=== PATIENT | male | born 1990 | race Caucasian/White ===

== ENCOUNTER 2016-03-12 15:03 | Emergency (ER) | payer BC ==
--- NOTE | 2016-03-12 15:09 | ER Document Report ---
ED Medical Screen (RME) - General Stated Complaint: DIZZY/WEAKNESS Notes: 25-year-old male presents to ED for dizziness, nausea, weakness, bodyaches, and fever since last night. Temp in ED 102.0 I have greeted and performed a rapid initial assessment of this patient. A comprehensive ED assessment and evaluation of the patient, analysis of test results and completion of medical decision making process will be conducted by an additional ED providers. TRAVEL OUTSIDE OF THE [place] IN LAST 30 DAYS: No - Related Data Allergies/Adverse Reactions: No Known Allergies Allergy (Verified 09/14/12 15:51) Past Medical History Pulmonary Medical History: Reports: Hx Asthma - as child, Hx Bronchitis - as child, Hx COPD Denies: Hx Tuberculosis Musculoskeltal Medical History: Denies Hx Arthritis, Denies Hx Fibromyalgia, Denies Hx Muscular Dystrophy Psychiatric Medical History: Denies: Hx Bipolar Disorder, Hx Depression, Hx Post Traumatic Stress Disorder , Hx Schizophrenia Traumatic Medical History: Reports: Hx Fractures - left wrist fracture Past Surgical History: Reports: Hx Orthopedic Surgery - right knee, Hx Tonsillectomy. Denies: Hx Appendectomy, Hx Bowel Surgery, Hx Cholecystectomy, Hx Coronary Artery Bypass Graft, Hx Gastric Bypass Surgery, Hx Herniorrhaphy, Hx Pacemaker - Immunizations Hx Diphtheria, Pertussis, Tetanus Vaccination: Yes
[2016-03-12] MEDS ORDERED: IBUPROFEN 800 MG TABLET PO ONE (15:10)
[2016-03-12] MEDS ORDERED: NORMAL SALINE 1000 ML 3,000 ML IV ONE (15:12)
[2016-03-12 16:01] LABS: ABSOLUTE LYMPHOCYTES (AUTO) 0.9 10^3/uL (0.5-4.7); ABSOLUTE MONOCYTES (AUTO) 0.7 10^3/uL (0.1-1.4); ABSOLUTE NEUT (AUTO) 11.1 10^3/uL (1.7-8.2); BASOPHILS % (AUTO) 0.2 % (0-2); HEMATOCRIT 45.5 % (37.9-51.0); HEMOGLOBIN 15.3 g/dL (13.5-17.0); HGB HCT DIFFERENCE 0.4; LYMPHOCYTES % (AUTO) 6.8 % (13-45); MEAN CORPUSCULAR HGB CONC 33.7 g/dL (32.0-36.0); MEAN CORPUSCULAR VOLUME 89 fl (80-97); MONOCYTES % (AUTO) 5.8 % (3-13); RED CELL DISTRIBUTION WIDTH 12.9 % (11.5-14.0); SEGMENTED NEUTROPHILS % (AUTO) 87.2 % (42-78); WHITE BLOOD COUNT 12.8 10^3/uL (4.0-10.5)
[2016-03-12 16:03] LABS: APPEARANCE,URINE SLIGHTLY-CLOUDY; BILIRUBIN,URINE NEGATIVE (NEGATIVE); GLUCOSE, URINE NEGATIVE (NEGATIVE); KETONES,URINE NEGATIVE (NEGATIVE); LEUKOCYTE ESTERASE,URINE NEGATIVE (NEGATIVE); NITRITE,URINE NEGATIVE (NEGATIVE); PROTEIN,URINE NEGATIVE (NEGATIVE); URINE SPECIFIC GRAVITY 1.018; UROBILINOGEN,URINE NEGATIVE mg/dL (<2.0)
[2016-03-12 16:21] LABS: ALANINE AMINOTRANSFERASE 48 U/L (21-72); ALBUMIN 4.6 g/dL (3.5-5.0); ALKALINE PHOSPHATASE 87 U/L (38-126); ANION GAP 15 (5-19); ASPARTATE AMINO TRANSFERASE 27 U/L (17-59); BILIRUBIN,TOTAL 0.8 mg/dL (0.2-1.3); BLOOD UREA NITROGEN 12 mg/dL (7-20); CALCIUM 9.9 mg/dL (8.4-10.2); CARBON DIOXIDE 27 mmol/L (22-30); CHLORIDE 100 mmol/L (98-107); CREATININE RESULT 0.96 mg/dL (0.52-1.25); GLUCOSE 104 mg/dL (75-110); POTASSIUM 3.9 mmol/L (3.6-5.0); SODIUM 141.7 mmol/L (137-145); TOTAL PROTEIN 7.8 g/dL (6.3-8.2)
[2016-03-12] MEDS ORDERED: ONDANSETRON HCL INJ/PF 4 MG/2 ML SDV IV ONE (16:29)
[2016-03-12] MEDS ORDERED: DEXAMETHASONE SOD PHOS INJ 10 MG/1 ML VIAL IV ONE (16:29)
[2016-03-12] MEDS ORDERED: PENICILLIN V POTASSIUM 500 MG TABLET PO ONE (16:30)
[2016-03-12] MEDS ORDERED: ACETAMINOPHEN 325 MG TABLET PO ONE (16:33)
--- NOTE | 2016-03-12 16:53 | ER Document Report ---
ED General - General Chief Complaint: Dizziness Stated Complaint: DIZZY/WEAKNESS Time seen by provider: 16:00 Mode of Arrival: Ambulatory Information source: Patient Notes: 25-year-old male presented 2 day history of subjective fever chills nonproductive cough sore throat diffuse body aches. Patient reports she's felt so weak he thinks he might have passed out once or twice over the past day. He denies vomiting, diarrhea, hematemesis, melena, dysuria, or specific chest dollar back pain. He reports chronic back pain which she says is about typical for him. Physical Exam: General: Alert, appears uncomfortable HEENT: Normocephalic. Atraumatic. PERRLA. Extraocular movements intact. Oropharynx with erythema and swelling to the tonsillar area bilaterally with white exudate bilaterally. No stridor or hoarseness or drooling Neck: Supple. Tender adenopathy bilaterally no JVD Respiratory: No respiratory distress. Clear and equal breath sounds bilaterally. Cardiovascular: Regular rate and rhythm. Abdominal: Normal Inspection. Soft, non-tender. No distension. Normal Bowel Sounds. Back: Non-tender. No deformity or step off. Extremities: Moves all four extremities. Upper extremities: Normal inspection. Non-tender. Normal color. Normal ROM. Normal temperature. Lower extremities: Normal inspection. Non-tender. No edema. Normal color. Normal ROM. Normal temperature. Neurological: Speech clear mentation normal director of social work strength 5 out of 5 equal both upper tremors motor function 5 out of 5 equal both lower extremities Psychological: Normal affect. Normal Mood. Skin: Warm. Dry. Normal color. TRAVEL OUTSIDE OF THE [place] IN LAST 30 DAYS: No - Related Data Allergies/Adverse Reactions: No Known Allergies Allergy (Verified 09/14/12 15:51) Past Medical History - Social History Smoking Status: Current Every Day Smoker Family History: Reviewed & Not Pertinent Patient has suicidal ideation: No Patient has homicidal ideation: No Pulmonary Medical History: Reports: Hx Asthma - as child, Hx Bronchitis - as child, Hx COPD Denies: Hx Tuberculosis Renal/ Medical History: Denies: Hx Peritoneal Dialysis Musculoskeltal Medical History: Denies Hx Arthritis, Denies Hx Fibromyalgia, Denies Hx Muscular Dystrophy Psychiatric Medical History: Denies: Hx Bipolar Disorder, Hx Depression, Hx Post Traumatic Stress Disorder , Hx Schizophrenia Traumatic Medical History: Reports: Hx Fractures - left wrist fracture Past Surgical History: Reports: Hx Orthopedic Surgery - right knee, Hx Tonsillectomy. Denies: Hx Appendectomy, Hx Bowel Surgery, Hx Cholecystectomy, Hx Coronary Artery Bypass Graft, Hx Gastric Bypass Surgery, Hx Herniorrhaphy, Hx Pacemaker - Immunizations Hx Diphtheria, Pertussis, Tetanus Vaccination: Yes Review of Systems - Review of Systems Constitutional: See HPI EENT: See HPI Cardiovascular: See HPI Respiratory: See HPI Genitourinary: denies: Burning, Dysuria Musculoskeletal: See HPI Skin: denies: Rash Hematologic/Lymphatic: Swollen glands Neurological/Psychological: Weakness. denies: Numbness Physical Exam - Vital signs Vitals: Temp Pulse Resp BP Pulse Ox 102 F H 125 H 18 138/73 H 98 03/12/16 15:07 03/12/16 15:07 03/12/16 15:07 03/12/16 15:07 03/12/16 15:07 Course - Re-evaluation Re-evalutation: 03/12/16 17:09 Patient predominantly has acute pharyngitis group A strep. I believe he also has a component of on depletion accounting for his tachycardia and would generalized weakness. Been treated with Motrin in triage and also received Tylenol and Zofran here as well as dexamethasone given the degree of his throat discomfort. I do not palpate anything to suggest peritonsillar or retropharyngeal abscess. He has no airway compromise believe is safe for discharge with outpatient medications for nausea as well as Pen-Vee K and steroid Dosepak. We will follow with his physician or return to emergency department for further problems - Vital Signs Vital signs: Temp Pulse Resp BP Pulse Ox 102 F H 125 H 18 138/73 H 98 03/12/16 15:07 03/12/16 15:07 03/12/16 15:07 03/12/16 15:07 03/12/16 15:07 - Laboratory Result Diagrams: 03/12/16 15:35 03/12/16 15:35 Laboratory results interpreted by me: 03/12/16 15:35 WBC 12.8 H Seg Neutrophils % 87.2 H Lymphocytes % 6.8 L Absolute Neutrophils 11.1 H - Diagnostic Test Radiology reviewed: Reports reviewed - EKG Interpretation by Me Additional EKG results interpreted by me: 03/12/16 17:13 EKG reviewed by myself shows sinus tachycardia at 102 no acute changes Discharge - Discharge Clinical Impression: Dehydration Acute pharyngitis Qualifiers: Pharyngitis/tonsillitis etiology: streptococcus Qualified Code(s): J02.0 - Streptococcal pharyngitis Condition: Stable Disposition: HOME, SELF-CARE Additional Instructions: Sore Throat Sore throats may be caused by viruses, bacteria, or fungi. Most are due to a virus, and must get better on their own. Bacterial sore throats, particularly those due to "strep," need treatment with antibiotics. If an antibiotic is prescribed, be sure to take the medication for a full 10 days. Failure to take the antibiotic can result in complications such as rheumatic fever. Sometimes, an injection of antibiotics is given instead of pills or liquid. This single "shot" is equal in effectiveness to the oral medication. To relieve symptoms, take acetaminophen for pain. Sip clear liquids frequently, or eat popsicles or ice chips. Anesthetic sprays or lozenges may help. Make sure the air in the room is not too dry. Avoid using decongestants or antihistamines. Call the doctor if there is no improvement in two days, or if you have difficulty breathing, increasing throat pain, high fever, rash, or frequent vomiting. Prescriptions: Methylprednisolone [Medrol Dosepack (4 mg/Tab) 21 Tab/Dosepak] 4 mg PO ASDIR PRN #21 tab.ds.pk PRN Reason: Ondansetron [Zofran Odt 4 mg Tablet] 1 - 2 tab PO Q4H PRN #15 tab.rapdis PRN Reason: For Nausea/Vomiting Penicillin V Potassium [Penicillin Vk 500 mg Tablet] 500 mg PO QID #40 tablet Referrals: FIDE MAGAÑA MD [Primary Care Provider] - Follow up as needed
[2016-03-12] MEDS: NORMAL SALINE 1000 ML 1,000 ML IV PRN ×2 (17:11→17:45)
--- NOTE | 2016-03-12 19:04 | EKG REPORT ---
SEVERITY:- ABNORMAL ECG - SINUS TACHYCARDIA NONSPECIFIC INTRAVENTRICULAR CONDUCTION DELAY INFERIOR Q WAVES, PROBABLY NORMAL VARIATION : Confirmed by: Mikey Álvarez 12-Mar-2016 19:03:24
[2016-03-12 19:12] VITALS: BP 100/44
== END 2016-03-12 18:30 | disposition home or self-care (01) ==
LOC: ER 15:03
DX: J02.0 Streptococcal pharyngitis (principal); E86.0 Dehydration; R42 Dizziness and giddiness; R50.9 Fever, unspecified; R05 Cough; F17.200 Nicotine dependence, unspecified, uncomplicated
CPT/HCPCS: 93005; 99284; 36415; 87040; 87880; 85025; 80053; 81001; 83605; 87804; 71020; 93010; J2405; J7030; J1100

== ENCOUNTER 2017-04-08 20:18 | Emergency (ER) | payer BC ==
[2017-04-08] MEDS ORDERED: BENZONATATE 100 MG CAPSULE PO ONE (22:43)
--- NOTE | 2017-04-08 22:43 | ER Document Report ---
ED Flu Like - General Mode of Arrival: Ambulatory Information source: Patient TRAVEL OUTSIDE OF THE [place] IN LAST 30 DAYS: No - General Chief Complaint: Flu Symptoms Stated Complaint: FLU SYMPTOMS Time Seen by Provider: 04/08/17 22:10 Notes: Patient is a 26-year-old male who presents to the emergency department today with complaints of flu-like symptoms including a sore throat, body aches, sweats , chills, fevers, cough, and pain with breathing. Patient states he has coughed until he vomited twice since this has began. Patient states he has a history of asthma but he has not had to use an inhaler in over 5 years, stating he does not even have one anymore. Patient denies any nasal congestion. (LAYNE ESTRADA) - Related Data Allergies/Adverse Reactions: No Known Allergies Allergy (Verified 04/08/17 21:58) Past Medical History - General Information source: Patient - Social History Smoking Status: Current Every Day Smoker Cigarette use (# per day): Yes Frequency of alcohol use: None Drug Abuse: None Lives with: Family Family History: Reviewed & Not Pertinent Patient has suicidal ideation: No Patient has homicidal ideation: No Pulmonary Medical History: Reports: Hx Asthma - as child, Hx Bronchitis - as child, Hx COPD Traumatic Medical History: Reports: Hx Fractures - left wrist fracture Past Surgical History: Reports: Hx Orthopedic Surgery - right knee, Hx Tonsillectomy - Immunizations Hx Diphtheria, Pertussis, Tetanus Vaccination: Yes Review of Systems - Review of Systems Constitutional: See HPI, Chills, Diaphoresis, Fever EENT: See HPI, Throat pain. denies: Nose congestion Cardiovascular: See HPI, Chest pain Respiratory: See HPI, Cough - until vomit x2, Hurts to breathe Gastrointestinal: No symptoms reported Genitourinary: No symptoms reported Male Genitourinary: No symptoms reported Musculoskeletal: See HPI, Other - generalized body aches Skin: No symptoms reported Hematologic/Lymphatic: No symptoms reported Neurological/Psychological: No symptoms reported -: Yes All other systems reviewed and negative Physical Exam - Vital signs Vitals: Temp Pulse Resp BP Pulse Ox 99.2 F 108 H 21 H 146/63 H 98 04/08/17 20:34 04/08/17 20:34 04/08/17 20:34 04/08/17 20:34 04/08/17 20:34 - Notes Notes: PHYSICAL EXAM GENERAL: Alert, interacts well. No acute distress. HEAD: Normocephalic, atraumatic. EYES: Pupils equal, round, and reactive to light. Extraocular movements intact. ENT: Oral mucosa moist, tongue midline. No posterior oropharynx erythema, exudate, or postnasal drainage. NECK: Full range of motion. Supple. Trachea midline. LUNGS: Expiratory rhonchi in the left lower lobe, no wheezes or rales. No respiratory distress. HEART: Regular rate and rhythm. No murmurs, gallops, or rubs. ABDOMEN: Non-distended. EXTREMITIES: Moves all 4 extremities spontaneously. No edema, radial and dorsalis pedis pulses 2/4 bilaterally. No cyanosis. NEUROLOGICAL: Alert and oriented x3. Normal speech. PSYCH: Normal affect, normal mood. SKIN: Warm, dry, normal turgor. No rashes or lesions noted. (LAYNE ESTRADA) Course - Re-evaluation Re-evalutation: 04/08/17 23:17 Given patient's constellation of symptoms I suspect influenza, I am concerned by his posttussive emesis for possible pneumonia, chest x-ray was performed and found to be negative. Discussed with patient the likely diagnosis of influenza based off of clinical presentation, also discussed the risks and benefits of oseltamivir including 10 % incidence of nausea and vomiting, and other side effects including diarrhea, headaches, muscle aches and small incidence of psychosis. Patient prefers not to take oseltamivir but instead use Zofran for nausea, Tessalon Perles for cough , Motrin and acetaminophen for muscle aches and headache. I agree with this as the patient has not had active asthma in over 5 years. (ALBERT HYMAN) - Vital Signs Vital signs: Temp Pulse Resp BP Pulse Ox 99.0 F 95 20 138/66 H 98 04/08/17 23:24 04/08/17 23:24 04/08/17 23:24 04/08/17 23:24 04/08/17 23:24 Discharge - Discharge Clinical Impression: Influenza, Tobacco abuse, Tobacco abuse counseling Hypertension Qualifiers: Hypertension type: essential hypertension Qualified Code(s): I10 - Essential ( primary) hypertension Condition: Stable Disposition: HOME, SELF-CARE Additional Instructions: Please drink plenty of fluids, you may use the Tessalon Perles to decrease your cough. [id number] sore throat lozenges may help with your throat but also eating a spoonful of dark honey can help to treat your sore throat as well as your cough. Hot tea with honey and lemon may also help with the sore throat and the cough. Please use ibuprofen (Motrin or Advil) 600-800 mg every 8 hours as needed for pain or fever. You may also use acetaminophen (Tylenol) 1000 mg every 4-6 hours as needed for pain or fever. Please be aware that many medications contain acetaminophen, do not exceed a total of 1000 mg of acetaminophen every 6 hours. Prescriptions: Ondansetron [Zofran Odt 4 mg Tablet] 1 - 2 tab PO Q4HP PRN #10 tab.rapdis PRN Reason: Benzonatate [Tessalon Perles 100 mg Capsule] 100 mg PO Q8HP PRN #40 capsule PRN Reason: Forms: Elevated Blood Pressure, Smoking Cessation Education, Return to Work Referrals: SANA BYRNES FNP [Primary Care Provider] - Follow up in 1 week Scribe Attestation: 04/09/17 04:11 I personally performed the services described in the documentation, reviewed and edited the documentation which was dictated to the scribe in my presence, and it accurately records my words and actions. (ALBERT HYMAN) Scribe Documentation - Scribe Written by Elsa:: Elsa Gross, 04/08/2017 [id number] acting as scribe for :: Kaitlyn
--- NOTE | 2017-04-08 22:59 | RADIOLOGY REPORT (SQ) ---
EXAM DESCRIPTION: CHEST PA/LAT COMPLETED DATE/TIME: 04/08/2017 10:47 pm REASON FOR STUDY: post-tussive emesis, possible pneumonia COMPARISON: 03/12/2016 EXAM PARAMETERS: NUMBER OF VIEWS: two views TECHNIQUE: Digital Frontal and Lateral radiographic views of the chest acquired. RADIATION DOSE: NA LIMITATIONS: none FINDINGS: LUNGS AND PLEURA: No acute opacities, masses or pneumothorax. No pleural effusion. MEDIASTINUM AND HILAR STRUCTURES: No masses or contour abnormalities. HEART AND VASCULAR STRUCTURES: Heart normal size. No evidence for failure. BONES: No acute findings. HARDWARE: None in the chest. OTHER: No other significant finding. IMPRESSION: No acute findings. TECHNICAL DOCUMENTATION: JOB ID: [id number] [place]-72 2010 [employer]- All Rights Reserved
[2017-04-08 23:24] VITALS: BP 138/66
== END 2017-04-08 23:23 | disposition home or self-care (01) ==
LOC: ER 20:18
DX: J11.1 Influenza due to unidentified influenza virus with other respiratory manifestations (principal); M79.1 Myalgia; R61 Generalized hyperhidrosis; R11.10 Vomiting, unspecified; F17.210 Nicotine dependence, cigarettes, uncomplicated; I10 Essential (primary) hypertension
CPT/HCPCS: 71046; 99283

== ENCOUNTER 2017-12-26 18:41 | Emergency (ER) | payer BC ==
--- NOTE | 2017-12-26 19:11 | ER Document Report ---
HPI - HPI Patient complains to provider of: x 2 weeks, worse over lat 24 hours Onset/Duration: Sudden Quality of pain: Throbbing Severity: Moderate Pain Level: 2 Context: 27-year-old male presents the ED for complaints of sore throat and bilateral ear pain times 2-week although has become progressively worse over the last day. Has not tried any [id number] medications, patient is a smoker. Ear pain is throbbing, reports sore throat is sharp. Pain is 5 out of 10, progressively getting worse. Denies fevers, chills, chest pain,palpitations, shortness of breath, dyspnea, nausea, vomiting, diarrhea, abdominal pain, hematuria,blurred vision, double vision, loss of vision, speech changes, LH, dizziness, syncope, headaches, wheezing, neck pain, weakness, bowel or bladder dysfunction, saddle anesthesia, numbness or tingling in bilateral upper or lower extremities equally, muscle paralysis, weakness in bilateral upper or lower extremities equally or rash. Past Medical History - General Information source: Patient - Social History Smoking Status: Current Every Day Smoker Family History: Reviewed & Not Pertinent Pulmonary Medical History: Reports: Hx Asthma - as child, Hx Bronchitis - as child, Hx COPD Denies: Hx Tuberculosis Renal/ Medical History: Denies: Hx Peritoneal Dialysis Musculoskeletal Medical History: Denies Hx Arthritis, Denies Hx Fibromyalgia, Denies Hx Muscular Dystrophy Psychiatric Medical History: Denies: Hx Bipolar Disorder, Hx Depression, Hx Post Traumatic Stress Disorder , Hx Schizophrenia Traumatic Medical History: Reports: Hx Fractures - left wrist fracture Past Surgical History: Reports: Hx Orthopedic Surgery - right knee, Hx Tonsillectomy. Denies: Hx Appendectomy, Hx Bowel Surgery, Hx Cholecystectomy, Hx Coronary Artery Bypass Graft, Hx Gastric Bypass Surgery, Hx Herniorrhaphy, Hx Pacemaker - Immunizations Hx Diphtheria, Pertussis, Tetanus Vaccination: Yes Vertical Provider Document - CONSTITUTIONAL Agree With Documented VS: Yes Exam Limitations: No Limitations Notes: PHYSICAL EXAMINATION: GENERAL: Well-appearing, well-nourished and in no acute distress. HEAD: Atraumatic, normocephalic. EYES: Pupils equal round and reactive to light, extraocular movements intact, sclera anicteric, conjunctiva are normal. ENT L TM with erythema, bulging and intact. EAC normal bilaterally and R TM wnl. Hearing is grossly intact. Has normal facial sensation to light touch in 3 branches of the trigeminal nerve. Normal facial movement. No clicking or popping when jaw opens or closes. The nasal mucosa is moist. The septum is midline. There is no evidence of septal hematoma. The turbinates are without abnormality. No obvious abnormalities to the lips. The teeth are unremarkable No swelling no erythema no exudate no angioedema no drooling no trismus bilateral arches equal. Uvula midline. The salivary glands appear unremarkable. The tongue is midline. The posterior pharynx is erythema and exudate. The tonsils are +3 bilaterally. NECK: Normal range of motion, supple without lymphadenopathy LUNGS: Breath sounds clear to auscultation bilaterally and equal. No wheezes rales or rhonchi. HEART: Regular rate and rhythm without murmurs ABDOMEN: Soft, nontender, nondistended abdomen. No guarding, no rebound. No masses appreciated. Musculoskeletal: Normal range of motion, no pitting or edema. No cyanosis. NEUROLOGICAL: Cranial nerves grossly intact. Normal speech, normal gait. Normal sensory, motor exams PSYCH: Normal mood, normal affect. SKIN: Warm, Dry, normal turgor, no rashes or lesions noted. - INFECTION CONTROL TRAVEL OUTSIDE OF THE [place] IN LAST 30 DAYS: No Course - Re-evaluation Re-evalutation: 12/26/17 19:31 Presentation of several days of sore throat in an otherwise well-appearing patient. History and exam are not consistent with a retropharyngeal abscess or peritonsillar abscess. Airway is patent. No difficulty handling oral secretions. Vitals within normal limits. At this time will discharge with return precautions and follow-up recommendations. Verbal discharge instructions given a the bedside and opportunity for questions given. Medication warnings reviewed. Patient is in agreement with this plan and has verbalized understanding of return precautions and the need for primary care follow-up in the next 24-48 hours. - Vital Signs Vital signs: Temp Pulse Resp BP Pulse Ox 98.0 F 100 18 152/89 H 99 12/26/17 18:53 12/26/17 18:53 12/26/17 18:53 12/26/17 18:53 12/26/17 18:53 Discharge - Discharge Clinical Impression: Exudative pharyngitis, Left acute otitis media Clinical Impression: (Ruled Out): Left acute serous otitis media Condition: Stable Disposition: HOME, SELF-CARE Instructions: Otitis Media ([facility]), Sore Throat ([facility]), Strep Throat ([facility]) Additional Instructions: Rocephin You have been given an injection of an antibiotic called Rocephin ( ceftriaxone). Sometimes the injection must be combined with antibiotic pills. For some infections, such as an uncomplicated ear infection, Rocephin provides all the antibiotic that's needed. The antibiotic will be in your body for about two days. For serious infections, we usually repeat doses of Rocephin daily. Side effects are very unusual following a shot. Women may develop vaginal yeast infections, and babies can get yeast (thrush) in the mouth following the use of antibiotics. Contact your physician if you have symptoms with this medication. Allergy to this antibiotic can result in hives, wheezing, faintness, or itching. If symptoms of allergy occur, call the doctor at once. SORE THROAT: Sore throats may be caused by viruses, bacteria, or fungi. Most are due to a virus, and must get better on their own. Bacterial sore throats, particularly those due to "strep," need treatment with antibiotics. If an antibiotic is prescribed, be sure to take the medication for a full 10 days. Failure to take the antibiotic can result in complications such as rheumatic fever. Sometimes, an injection of antibiotics is given instead of pills or liquid. This single "shot" is equal in effectiveness to the oral medication. To relieve symptoms, take acetaminophen for pain. Sip clear liquids frequently, or eat popsicles or ice chips. Anesthetic sprays or lozenges may help. Make sure the air in the room is not too dry. Avoid using decongestants or antihistamines. Call the doctor if there is no improvement in two days, or if you have difficulty breathing, increasing throat pain, high fever, rash, or frequent vomiting. STREP THROAT: Your sore throat is due to the streptococcus germ (strep throat). Strep throat usually makes you feel quite ill with fever and aches, headache, swollen sore throat, and tender bumps under the angles of the jaw. Strep throat requires antibiotic treatment. Although the sore throat may go away by itself, complications such as rheumatic fever, kidney disease, or throat abscess can occur. We usually prescribe antibiotics by mouth. Be sure to take the medicine until it's gone. If you stop early, the strep may come back. If you are vomiting, are severely ill, or can't remember to take pills, we can give you an antibiotic shot. Take acetaminophen or ibuprofen for pain and fever. Sip frequent clear liquids, or use popsicles or ice chips. Anesthetic sprays or lozenges may help. Make sure the air in the room is not too dry. Avoid using decongestants or antihistamines. Call the doctor if there is no improvement in three days, or if you have difficulty breathing, increasing throat pain, high fever, rash, or frequent vomiting. icillin family, you should never take any other penicillin. Notify your doctor at once if you develop hives, itching, swelling, faintness, or shortness of breath. STEROID MEDICATION: You have been given a medicine of the cortisone/steroid class. This medication is used to control inflammation or allergy. It is usually only given for a short period of time, until the acute process subsides. There are usually no side effects from short-term use of cortisone-like medications. Some persons feel an increased sense of well-being and are not sleepy at bedtime. Long-term use of cortisone medications is best avoided, unless required for a severe condition. If your condition does not remit, or relapses after the course of corticosteroid medication, you should consult your physician. FOLLOW-UP CARE: If you have been referred to a physician for follow-up care, call the physician s office for an appointment as you were instructed or within the next two days. If you experience worsening or a significant change in your symptoms, notify the physician immediately or return to the Emergency Department at any time for re-evaluation. Prescriptions: Amoxicillin 1 tab PO TID #30 tab Prednisone [Deltasone 20 mg Tablet] 3 tab PO DAILY 5 Days #15 tablet Forms: Return to Work Referrals: SANA BYRNES FNP [NURSE PRACTITIONER] - Follow up in 3-5 days
[2017-12-26] MEDS ORDERED: DIPHENHYDRAMINE HCL 50 MG/ML VIAL IV ONE (19:28)
[2017-12-26] MEDS ORDERED: LIDOCAINE 1% INJ-PF (10 MG/ML) 30 ML SDV INJ ONE (19:28)
[2017-12-26] MEDS ORDERED: CEFTRIAXONE INJ 1000 MG VIAL IM ONE (19:28)
[2017-12-26] MEDS ORDERED: DIPHENHYDRAMINE HCL 50 MG/ML VIAL IM ONE (19:59)
[2017-12-26 20:25] VITALS: BP 147/92
== END 2017-12-26 20:25 | disposition home or self-care (01) ==
LOC: ER 18:41
DX: H66.92 Otitis media, unspecified, left ear (principal); J02.9 Acute pharyngitis, unspecified; H92.03 Otalgia, bilateral; F17.200 Nicotine dependence, unspecified, uncomplicated
CPT/HCPCS: 99283; 96372; 87070; 87880; J1200; J3490; J0696

== ENCOUNTER 2018-10-04 00:14 | Emergency (ER) | payer BC ==
--- NOTE | 2018-10-04 01:26 | ER Document Report ---
ED General - General Chief Complaint: ETOH Abuse Stated Complaint: ETOH Time Seen by Provider: 10/04/18 01:25 Primary Care Provider: PARAG INTERIANO PA [Primary Care Provider] - Follow up in 3-5 days Mode of Arrival: Medic Information source: Relative, Emergency Med Personnel Notes: This 28-year-old male presents the emergency department via EMS for alcohol intoxication. His is at his bedside. She reports that patient had drank approximately 12 beers before she left home to go to [facility]. She reports she was at [facility] may be 1 hour. She received a call from the neighbor's son telling her that she needed to come home and take patient back home because he was very intoxicated. When she got home she found out that he had drank possibly 2 bottles of fireball an unknown amount of tequila. She reports he started vomiting multiple times so she contacted EMS. She reports years ago he drank a lot but since they have been together for the past 4 years he has not been drinking like this. 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 Patient is lying on his right side respiratory rate even unlabored responds by moaning when aroused by shaking his arm. TRAVEL OUTSIDE OF THE [place] IN LAST 30 DAYS: No - HPI Onset: Just prior to arrival Onset/Duration: Sudden Quality of pain: No pain Associated symptoms: Vomiting Exacerbated by: Denies Relieved by: Denies Similar symptoms previously: No Recently seen / treated by doctor: No - Related Data Allergies/Adverse Reactions: No Known Allergies Allergy (Verified 12/26/17 18:45) Past Medical History - General Information source: Relative Cannot obtain history due to: Intoxicated - Social History Smoking Status: Current Every Day Smoker Cigarette use (# per day): Yes Frequency of alcohol use: Occasional Drug Abuse: None Occupation: frame repairer Lives with: Family Family History: Reviewed & Not Pertinent Patient has suicidal ideation: No Patient has homicidal ideation: No Pulmonary Medical History: Reports: Hx Asthma - as child, Hx Bronchitis - as child, Hx COPD Denies: Hx Tuberculosis Renal/ Medical History: Denies: Hx Peritoneal Dialysis Musculoskeletal Medical History: Denies Hx Arthritis, Denies Hx Fibromyalgia, Denies Hx Muscular Dystrophy Psychiatric Medical History: Denies: Hx Bipolar Disorder, Hx Depression, Hx Post Traumatic Stress Disorder, Hx Schizophrenia Traumatic Medical History: Reports: Hx Fractures - left wrist fracture Past Surgical History: Reports: Hx Orthopedic Surgery - right knee, Hx Tonsillectomy. Denies: Hx Appendectomy, Hx Bowel Surgery, Hx Cholecystectomy, Hx Coronary Artery Bypass Graft, Hx Gastric Bypass Surgery, Hx Herniorrhaphy, Hx Pacemaker - Immunizations Hx Diphtheria, Pertussis, Tetanus Vaccination: Yes Review of Systems - Review of Systems Notes: Review HPI for review of systems., All other systems negative Physical Exam - Vital signs Vitals: Pulse Resp BP 86 24 H 128/66 H 10/04/18 01:27 10/04/18 01:27 10/04/18 01:27 - General General appearance: Other - Intoxicated In distress: None - HEENT Head: Normocephalic, Atraumatic Eyes: Normal Pupils: PERRL Neck: Normal, Supple. No: Lymphadenopathy - Respiratory Respiratory status: No respiratory distress Chest status: Nontender Breath sounds: Normal Chest palpation: Normal - Cardiovascular Rhythm: Regular Heart sounds: Normal auscultation - Abdominal Inspection: Normal Tenderness: Nontender - Back Back: Normal, Nontender - Extremities General upper extremity: Normal ROM General lower extremity: Normal ROM - Neurological Neuro grossly intact: Yes Cognition: Other - intoxicated - Skin Skin Temperature: Warm Skin Moisture: Dry Skin Color: Normal Course - Re-evaluation Re-evalutation: 10/04/18 03:15 This 28-year-old male presents emergency department via EMS for acute alcohol intoxication. is unsure exactly how much alcohol he drank. She became concerned because he started vomiting violently so she called EMS. Patient is obviously intoxicated will moan when he is shaken. 10/04/18 06:10 Patient vomited upon waking. He was treated with Zofran IV. he was able to get up and walk to the bathroom. is here and willing to drive him home. He is answering all questions appropriately, he will be discharged to the care of his . Dictation of this chart was performed using voice recognition software; therefore, there may be some unintended grammatical errors. - Vital Signs Vital signs: Temp Pulse Resp BP Pulse Ox 88 20 132/69 H 10/04/18 06:27 10/04/18 06:27 10/04/18 06:27 - Laboratory Result Diagrams: 10/04/18 02:28 10/04/18 02:28 Laboratory results interpreted by me: 10/04/18 02:28 Glucose 125 H AST 74 H Discharge - Discharge Clinical Impression: Alcohol abuse Vomiting Qualifiers: Vomiting type: unspecified Vomiting Intractability: non-intractable Nausea presence: unspecified Qualified Code(s): R11.10 - Vomiting, unspecified Condition: Stable Disposition: HOME, SELF-CARE Instructions: Acute Alcohol Intoxication ([facility]), Antinausea Medication ([facility]) Additional Instructions: *You have been evaluated for acute alcohol intoxication *Take medication as prescribed *Follow up with a primary care provider within one week for recheck *Return to ED for worsening condition, changes, needs Forms: Elevated Blood Pressure Referrals: PARAG INTERIANO PA [Primary Care Provider] - Follow up in 3-5 days
[2018-10-04 02:42] LABS: ABSOLUTE LYMPHOCYTES (AUTO) 2.1 10^3/uL (0.5-4.7); ABSOLUTE MONOCYTES (AUTO) 0.4 10^3/uL (0.1-1.4); ABSOLUTE NEUT (AUTO) 6.2 10^3/uL (1.7-8.2); BASOPHILS % (AUTO) 0.2 % (0-2); EOSINOPHILS % (AUTO) 0.3 % (0-6); HEMATOCRIT 42.7 % (37.9-51.0); HEMOGLOBIN 14.7 g/dL (13.5-17.0); MEAN CORPUSCULAR HEMOGLOBIN 30.2 pg (27.0-33.4); MEAN CORPUSCULAR HGB CONC 34.4 g/dL (32.0-36.0); MEAN CORPUSCULAR VOLUME 88 fl (80-97); MONOCYTES % (AUTO) 4.8 % (3-13); PLATELET COUNT 233 10^3/uL (150-450); RED BLOOD COUNT 4.85 10^6/uL (4.35-5.55); RED CELL DISTRIBUTION WIDTH 13.4 % (11.5-14.0); SEGMENTED NEUTROPHILS % (AUTO) 70.7 % (42-78); TOTAL CELLS COUNTED % (AUTO) 100 %; WHITE BLOOD COUNT 8.8 10^3/uL (4.0-10.5)
[2018-10-04 03:08] LABS: ALBUMIN 4.3 g/dL (3.5-5.0); ALCOHOL 195 mg/dL (NONE DETECTED); ALKALINE PHOSPHATASE 80 U/L (38-126); ANION GAP 10 (5-19); ASPARTATE AMINO TRANSFERASE 74 U/L (17-59); BILIRUBIN,DIRECT 0.3 mg/dL (0.0-0.4); BILIRUBIN,TOTAL 0.4 mg/dL (0.2-1.3); BLOOD UREA NITROGEN 10 mg/dL (7-20); CARBON DIOXIDE 30 mmol/L (22-30); CHLORIDE 104 mmol/L (98-107); GLUCOSE 125 mg/dL (75-110); POTASSIUM 4.5 mmol/L (3.6-5.0); TOTAL PROTEIN 7.2 g/dL (6.3-8.2)
[2018-10-04] MEDS ORDERED: ONDANSETRON HCL INJ/PF 4 MG/2 ML SDV IV ONE (05:34)
[2018-10-04] MEDS ORDERED: ONDANSETRON ODT 4 MG TAB (6 TAB/ER DISP) PO PRN (06:12)
[2018-10-04 06:27] VITALS: BP 132/69
== END 2018-10-04 06:31 | disposition home or self-care (01) ==
LOC: ER 00:14
DX: F10.129 Alcohol abuse with intoxication, unspecified (principal); R11.10 Vomiting, unspecified; F17.210 Nicotine dependence, cigarettes, uncomplicated; J44.9 Chronic obstructive pulmonary disease, unspecified
CPT/HCPCS: 99284; 96374; 36415; 80307; 85025; 80053; J2405